=== PATIENT | female | born 1985 | race Caucasian/White ===

== ENCOUNTER 2022-02-27 17:40 | Emergency (ER) | payer OTHER, SELFPAY ==
[2022-02-27 17:59] VITALS: BP 131/76; PULSE 95; RESP 20; TEMP 37.2; O2SAT 98; BMI 18.8
--- NOTE | 2022-02-27 19:11 | ED_ITS ---
HPI - Ear Problem General: Chief complaint: Ear Stated complaint: sent by [facility] swelling behind ears Time Seen by Provider: 02/27/22 19:09 History of Present Illness: 37-year-old female comes in today with complaints of neck pain, and lymphadenopathy. Patient thinks that there is some lymph node to her posterior neck occipital region with increasing headache. 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 Patient denies any other symptoms except for some nausea due to the pain. Patient routinely goes to the [facility] and was referred to the ER due to her pain and lymphadenopathy. Associated symptoms: Reports headache(s) and neck pain Review of Systems General: Reports: 10 or more systems reviewed and unremarkable except in HPI and below Card: Denies: chest pain Resp: Denies: dyspnea GI: Reports: nausea Musc: Reports: neck pain Neuro: Reports: headache(s) Alvino/Lymph: Reports: enlarged lymph nodes Physical Exam Const: COMMON NORMALS: alert HENMT: COMMON NORMALS: normocephalic and TM's normal bilaterally HEAD & SCALP: normocephalic NOSE: Nasal discharge present clear TYMPANIC MEMBRANE: TM's normal bilaterally THROAT: posterior oropharynx normal Neck/C-Spine: CERVICAL SPINE: Yes Paracervical muscle tenderness Lymph: LYMPHATIC: No lymphadenopathy Resp: COMMON NORMALS: normal respiratory effort Cardio: COMMON NORMALS: regular rate RATE: regular rate : COMMON NORMALS: Yes no CVA tenderness BLADDER/KIDNEY EXAM: Yes no CVA tenderness Back/Pelvis: COMMON NORMALS: no CVA tenderness Neuro: SENSORIUM/ORIENTATION: Yes alert Skin: COMMON NORMALS: no rashes or lesions noted GENERAL SKIN EXAM: no rashes or lesions noted Course Vital Signs: Vital signs: Vital Signs Temperature 98.9 F 02/27/22 17:59 Pulse Rate 94 02/27/22 19:12 Respiratory Rate 16 02/27/22 19:12 Blood Pressure 115/80 02/27/22 19:12 Pulse Oximetry 97 02/27/22 19:12 [facility] - Ear Medical Decision Making 37-year-old female comes in today for complaints of headache, lymphadenopathy, neck discomfort. On exam patient has tension of the bilateral cervical paraspinous muscles. No obvious lymphadenopathy is noted. Bilateral TMs are clear. Patient has some clear nasal drainage. Posterior pharynx is normal. Respirations are even lungs are clear to auscultation. Differential diagnosis includes cervical muscle spasm, tension type headache, lymphadenitis, sinusitis. CT of the head indicated no acute abnormality. Patient was given a dose of Toradol 30 mg and 1 promethazine tablet with improvement of the headache and discomfort. Patient appeared to be resting much better. CBC was unremarkable CRP was 14. Believe the patient probably had a tension type headache with some muscle tightness in the cervical spine. No sign of infection was noted at this time. Patient may have underlying viral illness or allergic rhinitis. No serious illness or injury was noted. Lab Data : 02/27/[address] 02/27/22: IMPRESSION: No acute intracranial abnormality. Laboratory Results WBC 8.4 10^3/uL (4.0-10.0) 02/27/22 RBC 4.02 10^6/uL (4.1-5.3) L 02/27/22: Hgb 13.6 g/dL (11.5-15.3) 02/27/22 Hct 40.2 % (37.0-47.0) 02/27/22 MCV 100.0 fl (81-99) H 02/27/22: MCH 33.8 pg (28.0-34.0) 02/27/22 MCHC 33.8 g/dL (30.0-36.0) 02/27/22 RDW 13.2 % (12.1-15.1) 02/27/22 Plt Count 315 10^3/cmm (130-400) 02/27/22 MPV 9.5 fL (7.4-10.4) 02/27/22 Neut % (Auto) 37.1 % 02/27/22 Lymph % (Auto) 47.2 % 02/27/22: Calhoun % (Auto) 5.6 % 02/27/22 Eos % (Auto) 9.4 % 02/27/22 Baso % (Auto) 0.5 % 02/27/22 Neut # (Auto) 3.14 10^3/uL (1.8-7.7) 05/12/22 19:28 Lymph # (Auto) 4.0 10^3/uL (0.8-4.8) 02/27/22 19:28 Calhoun # (Auto) 0.5 10^3/uL (0.2-0.9) 02/27/22 19:28 Eos # (Auto) 0.8 10^3/uL (0.0-0.8) 02/27/22 19:28 Baso # (Auto) 0.0 10^3/uL (0.0-0.1) 02/27/22 19:28 Nucleated RBC % (auto) 0 % 02/27/22 19:28 Nucleated RBCs # 0.0 /100WBC 02/27/22 19:28 C-Reactive Protein 14.0 mg/L (0.0-4.9) H 02/27/22 19:28 Discharge Plan Discharge Patient Disposition: Home Clinical Impression: Lymphadenopathy Headache Qualifiers: Headache type: unspecified Headache chronicity pattern: unspecified pattern Intractability: not intractable Qualified Code(s): R51.9 - Headache, unspecified Condition: Stable Discharge Orders: Discharge ED (Routine); Ordered 02/27/22 Ordered By: Patrick Frances Discharge Diet: Usual diet Discharge Activity: Increase activity as tolerated Patient Instructions: Acute Headache (ED), Opioid Safety Activity Restrictions/Additional Instructions: Continue with routine care. Drink plenty of fluids. Use routine management for headaches. Follow-up with primary care for further instruction. Return to ER for new concerns. Monitor for fever, persistent vomiting, or other abnormalities. Coding Level of Care Code ED Cardiac Cath Lab Radiology Technologist for Katie Fwd Exam Comprehensive
[2022-02-27 19:12] VITALS: BP 115/80; PULSE 94; RESP 16; O2SAT 97
--- NOTE | 2022-02-27 19:23 | CTR_ITS ---
PROCEDURE INFORMATION: Exam: CT Head Without Contrast Exam date and time: 02/27/2022 7:43 PM Age: 37 years old Clinical indication: Headache; Other: Mastoid area pain, swelling; Additional info: Head ache TECHNIQUE: Imaging protocol: Computed tomography of the head without contrast. Radiation optimization: All CT scans at this facility use at least one of these dose optimization techniques: automated exposure control; mA and/or kV adjustment per patient size (includes targeted exams where dose is matched to clinical indication); or iterative reconstruction. COMPARISON: No relevant prior studies available. RADIATION DOSE METRICS: Total DLP (mGy-cm): 817.76 FINDINGS: Brain: Normal. No hemorrhage. Unremarkable white matter. No mass effect. Cerebral ventricles: No ventriculomegaly. Paranasal sinuses: Visualized sinuses are unremarkable. No fluid levels. Mastoid air cells: Visualized mastoid air cells are well aerated. Bones/joints: Suboccipital craniectomy changes. No acute fracture. Soft tissues: Unremarkable. CT/CT head wo con* [id number] IMPRESSION: No acute intracranial abnormality.
[2022-02-27 19:37] LABS: Basophils % 0.5 %; Eosinophils # 0.8 10^3/uL (0.0-0.8); Eosinophils % 9.4 %; Hematocrit 40.2 % (37.0-47.0); Hemoglobin 13.6 g/dL (11.5-15.3); Lymphocytes % 47.2 %; Mean Corpuscular HGB Conc 33.8 g/dL (30.0-36.0); Mean Corpuscular Hemoglobin 33.8 pg (28.0-34.0); Mean Platelet Volume 9.5 fL (7.4-10.4); Monocytes # 0.5 10^3/uL (0.2-0.9); Monocytes % 5.6 %; Neutrophils # 3.14 10^3/uL (1.8-7.7); Neutrophils % 37.1 %; Nucleated Red Blood Cells % 0 %; Platelet Count 315 10^3/cmm (130-400); Red Blood Count 4.02 10^6/uL (4.1-5.3); Red Cell Distribution Width 13.2 % (12.1-15.1); White Blood Count 8.4 10^3/uL (4.0-10.0)
[2022-02-27] MEDS: ketorolac 30 mg/mL INJ IM (19:58)
[2022-02-27] MEDS: promethazine 25 mg Tablet PO (20:03)
== END 2022-02-27 20:27 | disposition home or self-care (01) ==
PROVIDERS: Emergency Provider Nurse Practitioner Family
DX: R59.0 Localized enlarged lymph nodes (principal); R51.9 Headache, unspecified; M54.2 Cervicalgia
CPT/HCPCS: 70450; 85025; 86140; 96372; 99283; J1885; Q0169